=== PATIENT | female | born 1985 | race Caucasian/White ===

== ENCOUNTER 2016-06-20 22:11 | Emergency (ER) | payer OTHER ==
[2016-06-20 22:22] VITALS: BP 144/89; PULSE 90; TEMP 98.7; BMI 47.5
--- NOTE | 2016-06-20 22:25 | PDOC ---
History of Present Illness - General Chief Complaint: Injury Stated Complaint: LACERATION Time Seen by Provider: 06/20/16 22:16 - History of Present Illness Initial Comments: This 30-year-old woman without significant past medical history is brought in by ambulance from [facility] (where patient works) after sustaining a laceration to the right eyebrow. According the patient, she remembers laughing and coughing as she was talking to her friend. She leaned forward and struck the right eyebrow area against the corner of a wall, sustaining a laceration of the right eyebrow. According to the friend, the patient then lost consciousness and fell forward onto the ground. According to the friend, LOC was "less than a minute". No seizure activity/incontinence present. This occurred within a half hour prior to presentation. Patient states that she has pain around the area of the laceration but no generalized headache; she denies lightheadedness/nausea. She has had no visual blurring or double vision; no difficulty speaking/ swallowing. No extremity weakness and no difficulty with balance since the injury No previous history of syncope. No previous history of head injury Patient states that she has had cough productive of green sputum for the last week; she also has minor pain throat pain with coughing but no shortness of breath/wheezing or other symptoms. No previous history of asthma or other chronic respiratory illnesses patient smokes( 1/2 pack per day) 06/21/16 00:58 Past History - Past Medical History Allergies/Adverse Reactions: Allergies Allergy/AdvReac Type Severity Reaction Status Date / Time No Known Allergies Allergy Verified 06/20/16 22:13 Home Medications: Ambulatory Orders Azithromycin 250 mg PO DAILY #4 tablet 06/21/16 Promethazine/Phenyleph/Codeine [Phenergan VC+Codeine Syrup] 5 ml PO QID PRN #60 ml MDD 20 ml 06/21/16 Other medical history: DENIES - Psycho/Social/Smoking Cessation Hx Anxiety: No Suicidal Ideation: No Smoking History: Current every day smoker Have you smoked in the past 12 months: Yes Number of Cigarettes Smoked Daily: 2 Information on smoking cessation initiated: Yes 'Breaking Loose' booklet given: 06/20/16 Hx Alcohol Use: Yes (WEEK ENDS) Drug/Substance Use Hx: No Substance Use Type: None *Physical Exam - Vital Signs Last Vital Signs Temp Pulse Resp BP Pulse Ox 98.7 F 90 18 144/89 100 06/20/16 22:13 06/20/16 22:13 06/20/16 22:13 06/20/16 22:13 06/20/16 22:13 - Physical Exam Comments: Adult female, alert and oriented 3, speaking in full sentences; frequent coughing, no respiratory distress Vital signs as noted HEAD: No contusions, abrasions or lacerations of the scalp; EYES: Pupils equal, round and reactive to light, extraocular movements intact, sclera anicteric, conjunctiva mildly erythematous on right, normal on left One centimeter full-thickness, linear, diagonal laceration right supraorbital region from upper eyelid to mid eyebrow No significant orbital bone tenderness; no step-offs or deformity noted; mild erythema/edema medial portion of the right zygoma, nontender PHARYNX: No erythema, exudate or edema; mucous membranes moist NECK: Supple, nontender, no masses or bruits, no stridor LUNGS: Clear to auscultation bilaterally with good air movement CARDIAC: S1, S2 normal; no extra sounds, rubs or murmurs heard ABDOMEN:Normoactive bowel sounds, nontender, no masses, no organomegaly EXTREMITIES: Normal range of motion, no edema,deformity or tenderness NEUROLOGICAL: Cranial nerves II through XII grossly intact. Normal speech, normal gait.moving all 4 extremities equally, Sensation intact in all extremities. PSYCH: Normal mood, normal affect. SKIN: Warm, Dry, normal turgor, Procedures - Laceration/Wound Repair Right Upper Eye Wound Length: to 2.5 cm Wound Explored: clean Wound's Depth, Shape: linear Irrigated w/ Saline: Yes Betadine Prep: No (Hibiclens/ethanol) Anesthesia: 2% Lidocaine w/ Epi Amount of Anesthetic (ccs): 1 Wound Repaired With: Sutures Suture Size/Type: 5:0 Number of Sutures: 5 Layer Closure: No Sterile Dressing Applied: Yes Progress: Area was cleansed with Hibiclens/ethanol solution. One mL of 2% lidocaine with epinephrine infiltrated locally for anesthetic. Wound irrigated with 20 in the sterile normal saline. Area draped and wound closed with interrupted 5-0 nylon ( 5-0 Surgipro in area of eyebrow), 5 sutures total. Bacitracin ointment applied to the surface of the wound. Band-Aid applied to the wound. Patient tolerated procedure well Progress Note - Progress Note Progress Note: Noncontrast head CT performed because patient had loss of consciousness after she hit her forehead. Medical Decision Making - Medical Decision Making PGU negative Noncontrast head CT performed: No evidence of acute intracranial pathology. No evidence of skull fracture. Supraorbital laceration seen on the right side. Repair of right eyebrow/supraorbital laceration performed as noted above. Because the patient has had several days of greenish sputum and persistent cough , and because she is a smoker, she'll be given prescription for azithromycin ( 250 mg for 4 days with the first dose of 500 mg being given here in the emergency room). She'll also be given 10 mL of guaifenesin/dextromethorphan now. Patient will have sutures removed on June 25. She should follow-up with her doctor sooner if she has worsening cough, shortness of breath or high fever *DC/Admit/Observation/Transfer Diagnosis at time of Disposition: Laceration of eyebrow, right Qualifiers: Encounter type: initial encounter Qualified Code(s): S01.111A - Laceration without foreign body of right eyelid and periocular area, initial encounter Acute bronchitis Qualifiers: Bronchitis organism: unspecified organism Qualified Code(s): J20.9 - Acute bronchitis, unspecified - Discharge Dispostion Disposition: HOME Condition at time of disposition: Stable - Prescriptions Prescriptions: Azithromycin 250 mg PO DAILY #4 tablet Promethazine/Phenyleph/Codeine [Phenergan VC+Codeine Syrup] 5 ml PO QID PRN #60 ml MDD 20 ml PRN Reason: Cough - Patient Instructions Printed Discharge Instructions: How to Care for a Laceration After Repair, DI for Acute Bronchitis Additional Instructions: sleep on back tonight and use extra pillow Keep laceration as dry as possible for the next 2 days Bacitracin ointment to wound daily Azithromycin 250 mg daily for the next 4 days Phenergan/codeine cough syrup 1 teaspoon as needed at night for severe coughing Drink plenty of fluids; avoid smoking Return to ER or see your doctor if you have shortness of breath/wheezing or high fever Have sutures removed on June 25 - Post Discharge Activity Work/School Note: Back to Work
[2016-06-20] MEDS ORDERED: LIDO 2%/EPI 1:200000 PRESRVFRE (20 ML SDVIAL) ONE (23:22)
[2016-06-21] MEDS ORDERED: AZITHROMYCIN 250 MG TABLET (FP) PO ONE (00:05)
[2016-06-21] MEDS ORDERED: guaiFENesin/D-METHORPHAN HB 10 ML UNIT-DOSE CUPS PO ONE (00:06)
[2016-06-21] MEDS ORDERED: guaiFENesin/D-METHORPHAN HB 10 ML UNIT-DOSE CUPS ONE (00:08)
[2016-06-21] MEDS ORDERED: AZITHROMYCIN 250 MG TABLET (FP) ONE (00:08)
== END 2016-06-21 00:23 | disposition home or self-care (01) ==
LOC: FER 22:11
PROC: 0HQ1XZZ Repair Face Skin, External Approach (ICD-10-PCS; principal; 2016-06-20)
DX: S01.111A Laceration without foreign body of right eyelid and periocular area, initial encounter (principal); J20.9 Acute bronchitis, unspecified; F17.210 Nicotine dependence, cigarettes, uncomplicated
CPT/HCPCS: 70450-TC; 84703; 99281-25

== ENCOUNTER 2016-06-29 16:28 | Emergency (ER) | payer OTHER ==
[2016-06-29 16:47] VITALS: BP 135/88; PULSE 83; TEMP 98.4; BMI 47.5
--- NOTE | 2016-06-29 16:55 | PDOC ---
Suture Removal/Wound Check HPI - History of Present Illness History Source: Yes: Patient Exam Limitations: Yes: No Limitations - Onset of Previous Treatment Comment:: 06/29/16 16:58 The patient is a 30 year old female, with no significant past medical history who presents to the emergency department with right eyebrow suture removal. The patient was here on 06/20/16 and 5 sutures into her right eyebrow were placed by the attending ER physician, . The sutures were in good condition and removed upon examination. The patient denies any new injuries. She denies chest pain and shortness of breath. She denies fever, chills, headache and dizziness. She denies nausea, vomit, diarrhea and constipation. She denies dysuria, frequency, urgency and hematuria. Allergies: NKA Past surgical history: denies Social history: denies EtOH use, denies tobacco use, denies drug use <Oziel Koch - Last Filed: 06/29/16 16:58> <David Ruiz - Last Filed: 06/29/16 17:03> - History of Present Illness Chief Complaint: Suture/Staple Removal(Here) Stated Complaint: SUTURE REMOVAL Time Seen by Provider: 06/29/16 16:55 Past History <Oziel Koch - Last Filed: 06/29/16 16:58> - Immunization History Tetanus Status: Unknown - Social History Smoking Status: Current every day smoker Number of Ciarettes Per Day: 2 <David Ruiz - Last Filed: 06/29/16 17:03> - Past Medical History Allergies/Adverse Reactions: Allergies No Known Allergies Allergy (Verified 06/20/16 22:13) Home Medications: Ambulatory Orders Azithromycin 250 mg PO DAILY #4 tablet 06/21/16 Promethazine/Phenyleph/Codeine [Phenergan VC+Codeine Syrup] 5 ml PO QID PRN #60 ml MDD 20 ml 06/21/16 Suture Removal/Wound Check PE - Physical Exam Comments: 06/29/16 16:58 GENERAL: Well-appearing, well-nourished. No apparent distress. Interacting normally with environment. HEENT: Normocephalic, atraumatic. PERRL, EOM intact. Mucous membrane are moist and there is tear production. No congestion. NECK: Supple without nodes. CARDIOVASCULAR: Normal S1, S2. Regular rate and rhythm. PULMONARY: Clear to auscultation bilaterally. ABDOMEN: Soft, non-distended, non-tender. Normal bowel sounds. No organomegaly. EXTREMITIES: Normal ROM in all four extremities. No gross deformities. SKIN: Warm, dry. No rash. 1 cm vertical laceration through the outer right eyebrow. [address] wound is healing well. Edges are well approximated, no tenderness, erythema, swelling or drainage. Sutures were removed atraumatically , bacitracin was applied was instructed to keep wound dry with ointment for another week. Cosmetic result appears to be excellent. NEUROLOGICAL: No focal neurological deficits. <Oziel Koch - Last Filed: 06/29/16 16:58> *Review of Systems - Review of Systems Able to Perform ROS?: Yes Comments:: 06/29/16 16:59 Absent: fever, no chills, no fatigue EYES: Absent: visual changes ENT: Absent: ear pain, no sore throat CARDIOVASCULAR: Absent: chest pain, no palpitations RESPIRATORY: Absent: cough, no SOB GI: Absent: abdominal pain, no nausea, no vomiting, no constipation, no diarrhea GENITOURINARY: Absent: dysuria, no frequency, no hematuria MUSKULOSKELETAL: Absent: back pain, no arthralgia, no myalgia SKIN: Absent: rash NEURO: Absent: headache <Oziel Koch - Last Filed: 06/29/16 16:58> *DC/Admit/Observation/Transfer - Attestations Scribe Attestion: 06/29/16 16:59 Documentation prepared by Oziel Koch, acting as medical orderly for David Crews MD. <Oziel Koch - Last Filed: 06/29/16 16:58> - Discharge Dispostion Admit: No <David Ruiz - Last Filed: 06/29/16 17:03> Diagnosis at time of Disposition: Encounter for removal of sutures - Discharge Dispostion Disposition: HOME Condition at time of disposition: Improved - Patient Instructions Printed Discharge Instructions: DI for Suture Removal Additional Instructions: The wound moist with antibiotic ointment for at least another week. Recheck if sign of infection. Avoid direct pressure, irritation, or disturbance of the healed surface.
== END 2016-06-29 17:03 | disposition home or self-care (01) ==
LOC: FER 16:28
DX: Z48.02 Encounter for removal of sutures (principal)
CPT/HCPCS: 99282-25

== ENCOUNTER 2019-07-06 21:09 | Emergency (ER) | payer OTHER ==
[2019-07-06 21:16] VITALS: TEMP 98.2; BMI 45.7
--- NOTE | 2019-07-06 21:17 | PDOC ---
Rapid Medical Evaluation Time Seen by Provider: 07/06/19 21:12 Medical Evaluation: Allergies Allergy/AdvReac Type Severity Reaction Status Date / Time No Known Allergies Allergy Verified 06/20/16 22:13 07/06/19 21:12 I have performed a brief in-person evaluation of this patient. The patient presents with a chief complaint of:19 weeks w/ "flu like sxs" x 1 day. Also c/o pain in her abd and back. No vag bleed, dysuria, n/v/f/c Pertinent physical exam findings:Stable I have ordered the following:flu, ua The patient will proceed to the ED for further evaluation Discharge Disposition - Diagnosis Viral syndrome, Abdominal pain affecting - Referrals - Patient Instructions - Post Discharge Activity
--- NOTE | 2019-07-06 21:51 | PDOC ---
Attending Attestation - Resident Resident Name: Saul Junior - ED Attending Attestation I have performed the following: I have examined & evaluated the patient, The case was reviewed & discussed with the resident, I agree w/resident's findings & plan - HPI HPI: 07/06/19 23:09 Pt comes with pinkinsh vag discharge; she went to the bathroom to vomit and she feels something coming out of the vagina; she has delivered the feet and legs and baby is stuck at that point. [facility] TE[facility] called. They are sending down pitocin driip - Physicial Exam PE: 07/07/19 19:36 No abd cramping at this time. Pt afebrile. No flank pain. Heart RRR Lungs clear no ext edema Pt has fetus legs/and bottom out of vagina and rest in her vaginal canal. Pt is hemodynamically stable. - Medical Decision Making 07/07/19 00:50 Ptocin started; NSS and morphine given. Baby delivered with TYPING TEACHER present. Awaiting placenta delivery; placenta delivered after pitocin drip given. TYPING TEACHER back at bedside; requesting that we complete the pitocin drip and give pt a dose of methergine 0.2mg IM and then she can follow with her TYPING TEACHER or with our GYNs. Pt may require cerclage with her next .
[2019-07-06] MEDS ORDERED: ACETAMINOPHEN 325 MG TABLET (FP) PO ONE (22:43)
[2019-07-06] MEDS ORDERED: morphine CARPU-JECT 2 MG/1 ML DISP.SYRIN IVPUSH ONE (23:09)
[2019-07-06] MEDS ORDERED: SODIUM CHLORIDE 0.9% 500 ML INFUS.BAG IV ONE (23:09)
[2019-07-06] MEDS ORDERED: morphine SULFATE 4 MG/ML VIAL ONE (23:19)
[2019-07-06] MEDS ORDERED: OXYTOCIN 20 UNITS in 0.9% NS 20 UNIT/1,000 ML INFUS.BAG IV ONE (23:21)
[2019-07-06] MEDS ORDERED: OXYTOCIN 20 UNITS in 0.9% NS 1000 ML INFUS.BAG IV ONE (23:27)
[2019-07-06] MEDS ORDERED: ceFAZolin 2 GRAM PREMIX BAG IVPB ONE (23:27)
--- NOTE | 2019-07-06 23:28 | PDOC ---
History of Present Illness - General Chief Complaint: Vaginal Sxs Stated Complaint: 19WK NM/ABD PAIN Time Seen by Provider: 07/06/19 21:12 History Source: Patient Exam Limitations: No Limitations - History of Present Illness Initial Comments: 07/06/19 23:24 Dali Mcdonough is a 33F at 19 weeks presenting with abdominal and back pain. Patient reports that for the last day, has had suprapubic and lower back pain, described as cramping and is intense, non-positional, not associated with meals. Also having pink fluid discharge vaginally with some mucous discharge, no carlos blood. Sees [facility] for high risk given obesity. No other problems noted with this , no PMH and no meds. 1st time , denies any history STI. Denies chest pain, fever, SOB, urinary sx, diarrhea. Past History - Past Medical History Allergies/Adverse Reactions: Allergies Allergy/AdvReac Type Severity Reaction Status Date / Time No Known Allergies Allergy Verified 07/06/19 21:16 Home Medications: Ambulatory Orders Azithromycin 250 mg PO DAILY #4 tablet 06/21/16 Promethazine/Phenyleph/Codeine [Phenergan VC+Codeine Syrup] 5 ml PO QID PRN #60 ml MDD 20 ml 06/21/16 COPD: No - Psycho Social/Smoking Cessation Hx Smoking History: Never smoked Have you smoked in the past 12 months: Yes Number of Cigarettes Smoked Daily: 2 'Breaking Loose' booklet given: 06/20/16 Hx Alcohol Use: Yes (WEEK ENDS) Drug/Substance Use Hx: No Substance Use Type: None Review of Systems - Review of Systems Able to Perform ROS?: Yes Constitutional: No: Chills, Fever HEENTM: No: Symptoms Reported Respiratory: No: Symptoms reported Cardiac (ROS): No: Symptoms Reported ABD/GI: Yes: Nausea, Abdominal cramping. No: Constipated, Diarrhea, Vomiting : No: Symptoms Reported Musculoskeletal: Yes: Back Pain Integumentary: No: Symptoms Reported Neurological: No: Symptoms reported Endocrine: No: Symptoms Reported Hematologic/Lymphatic: No: Symptoms Reported *Physical Exam - Vital Signs Last Vital Signs Temp Pulse Resp BP Pulse Ox 98.2 F 117 H 18 124/94 98 07/06/19 21:13 07/06/19 21:13 07/06/19 21:13 07/06/19 21:13 07/06/19 21:13 - Physical Exam General Appearance: Yes: Nourished, Appropriately Dressed, Apparent Distress, Obese HEENT: positive: EOMI, MINA, Normal Voice, Pharynx Normal. negative: Scleral Icterus (R), Scleral Icterus (L), Sinus Tenderness Neck: positive: Normal Thyroid, Supple. negative: Tender, Trachea midline, Lymphadenopathy (R), Lymphadenopathy (L) Respiratory/Chest: positive: Lungs Clear, Normal Breath Sounds. negative: Chest Tender, Respiratory Distress, Accessory Muscle Use, Crackles, Rales, Rhonchi, Wheezing Cardiovascular: positive: Regular Rhythm, Regular Rate. negative: Murmur Gastrointestinal/Abdominal: positive: Normal Bowel Sounds, Flat, Soft. negative : Tender (reports suprapubic pain without increased pain to palpation), Organomegaly, Pulsatile Mass, Guarding, Rebound, Tenderness Musculoskeletal: positive: Normal Inspection. negative: CVA Tenderness, Vertebral Tenderness Extremity: positive: Normal Capillary Refill, Normal Inspection, Normal Range of Motion, Pelvis Stable. negative: Tender Integumentary: positive: Normal Color, Dry, Warm Neurologic: positive: Fully Oriented, Alert, Normal Mood/Affect, Normal Response , Motor Strength 5/5, Other (gait normal) ED Treatment Course - LABORATORY CBC & Chemistry Diagram: 07/06/19 23:00 07/06/19 23:00 Medical Decision Making - Medical Decision Making 07/06/19 23:41 Patient is a otherwise healthy at 19 weeks presenting with suprapubic and lower back pain with pink/clear vaginal discharge. Symptoms immediately concerning for miscarriage vs. placental abruption vs. UTI/ pyelo vs. renal stone. Left to place order for Tylenol for pain, patient had left to go to restroom to vomit, found by ED staff to have begun passage of her fetus in the restroom. Brought into room, CBC/CMP/Coags/TS obtained, OBGYN consul from L&D called. OBGYN delivered fetus, weighed 278gm and 9 inches. Ordered 20U pitocin drip to allow for placenta to pass, given 2mg Ancef for infection ppx. 07/06/19 23:49 Ordering RPR and HIV per OBGYN. 07/07/19 00:[address] Hackett. 07/07/19 00:31 Placenta delivered in one piece, OBGYN at bedside. Discharge - Discharge Information Problems reviewed: Yes Clinical Impression/Diagnosis: Abdominal pain affecting , Miscarriage - Follow up/Referral - Patient Discharge Instructions - Post Discharge Activity
[2019-07-06] MEDS ORDERED: CEFAZOLIN 2 GM in DEXTROSE 5%-WATER - 50 ML IVPB ONE (23:30)
[2019-07-06 23:39] LABS: BASO % 0.3 % (0-2.0); EOS % 0.4 % (0-4.5); HEMOGLOBIN 13.5 GM/dL (10.7-15.3); LYMPH % 10.6 % (8-40); MCH 30.4 pg (25.7-33.7); MCHC 33.8 g/dl (32.0-36.0); MEAN CELL VOLUME 89.9 fl (80-96); MEAN PLT VOLUME 9.8 fl (7.5-11.1); MONO % 7.5 % (3.8-10.2); NEUT % 81.2 % (42.8-82.8); PLATELET COUNT 193 K/MM3 (134-434); RBC 4.45 M/mm3 (3.60-5.2); RDW 13.2 % (11.6-15.6); WHITE BLOOD COUNT 12.2 K/mm3 (4.0-10.0)
--- NOTE | 2019-07-06 23:39 | CON.OBG ---
Consult Consult Specialty:: supervisor of guidance and testing Referred by:: Yocasta Ji MD Reason for Consultation:: rickey 19 weeks - History of Present Illness Chief Complaint: 33 yrs , lmp 02/25/2019 , 19 weeks gestation came to ER c/ o leaking fluid. onset since 8.00pM pnc at PMD 's office in [place] . pt c /o cramping, she went to bathroom, she felt something coming out of vagina History of Present Illness: pnc , by PMD in [place] she states she had 2 sonograms done in past no problem with until today. she had excssive discharge in AM today & cramps in AM no c/o bleeding she states she is high risk due to weight ( obesity ) - History Source History Provided By: Patient Limitations to Obtaining History: No Limitations - Past Medical History Cardio/Vascular: No: HTN, Murmur Pulmonary: No: Asthma Gastrointestinal: Yes: Other (none known ) Hepatobiliary: Yes: Other (none known ) Renal/: Yes: Other (declines) ...LMP: 02/25/19 ...: Yes ...: 1 ...Para: 0 Heme/Onc: Yes: Anemia Infectious Disease: Yes: Other (denies) Psych: Yes: Other (denies) Musculoskeletal: Yes: Other (denies) Rheumatology: Yes: Other (denies) Endocrine: Yes: Other (denies) Dermatology: Yes: Other (denies) - Past Surgical History Past Surgical History: Yes: None - Alcohol/Substance Use Hx Alcohol Use: Yes (WEEK ENDS) History of Substance Use: reports: None - Smoking History Have you smoked in the past 12 months: Yes Aproximately how many cigarettes per day: 2 Home Medications - Allergies Allergies/Adverse Reactions: Allergies Allergy/AdvReac Type Severity Reaction Status Date / Time No Known Allergies Allergy Verified 07/06/19 21:16 - Home Medications Home Medications: Ambulatory Orders Azithromycin 250 mg PO DAILY #4 tablet 06/21/16 Promethazine/Phenyleph/Codeine [Phenergan VC+Codeine Syrup] 5 ml PO QID PRN #60 ml MDD 20 ml 06/21/16 Physical Exam-MANAGER LANDSCAPE Vital Signs: Vital Signs Temperature 98.2 F 07/06/19 21:13 Pulse Rate 117 H 07/06/19 21:13 Respiratory Rate 18 07/06/19 21:13 Blood Pressure 124/94 07/06/19 21:13 O2 Sat by Pulse Oximetry (%) 98 07/06/19 21:13 Constitutional: Yes: Well Nourished, Obese, Other (pt is sad) Eyes: Yes: WNL HENT: Yes: WNL Neck: Yes: WNL Cardiovascular: Yes: Other (as per ED physician) Respiratory: Yes: Other (as per ED physician) Gastrointestinal: Yes: Abdomen, Obese Renal/: Yes: WNL, Vaginal Bleeding. No: CVA Tenderness - Left, CVA Tenderness - Right External Genitalia: Yes: Normal Internal Exam Deferred: Yes Vaginal Exam: Yes: Bleeding, Other (fetus hanging out of vagina breech , partally out) Cervix: Yes: Bleeding, Other (os open. fetus hanging from cx) Uterus: Yes: Enlarged (18 weeks size uterus) Adnexa: Not Palpable: Bilateral Breast(s): Yes: Other (pt refused exam . large breast) Musculoskeletal: Yes: WNL Extremities: No: Calf Tenderness Edema: No Integumentary: Yes: WNL Neurological: Yes: WNL, Alert, Oriented ...Motor Strength: WNL Psychiatric: Yes: WNL, Alert, Oriented Labs: Laboratory Tests 07/06/19 07/06/19 07/06/19 23:00 23:00 23:00 WBC 12.2 H Hgb 13.5 Hct 40.0 Plt Count 193 Sodium 138 Potassium 3.6 Chloride 103 Carbon Dioxide 23 BUN 6.2 L Creatinine 0.7 Random Glucose 108 H AST 57 H ALT 90 H Blood Type A POSITIVE Antibody Screen Negative Problem List - Problems (1) 19 weeks gestation of Code(s): Z3A.19 - 19 WEEKS GESTATION OF (2) Spontaneous Code(s): O03.9 - COMPLETE OR UNSP SPONTANEOUS WITHOUT COMPLICATION (3) premature rupture of membranes (PPROM) delivered, current hospitalization Code(s): O42.919 - PRETRM ELIZABETH ROM, UNSP TIME BETW RUPT AND ONST LABR, UNSP TRI (4) Morbid obesity with BMI of 45.0-49.9, adult Code(s): E66.01 - MORBID (SEVERE) OBESITY DUE TO EXCESS CALORIES; Z68.42 - BODY MASS INDEX (BMI) 45.0-49.9, ADULT Assessment/Plan 33 yrs , 19 weeks gestation h/o PPROM, incomplete expulsion of fetus in breech presntation Fetus hangiing out Pt asked to push , after coming head delievered completely at 11.10 PM female fetus, wt 278 GM, wt, 9" in length cord clamped & cut placenta not seprated yet Plan : IV pitocin 20 Iu in 1000 ml of Nsaline at 200ml/hr given watch for 1 hr , if placenta not completely expelled spontaeously, will do MRP under GA prophylactic antibiotics 2 gm IV Ancef stat labs cbc, cmp, coag, T & Screen pending , rpr , hiv also told to resident to be sent 12.30 AM placenta expelled spontaeously. cmpletely placenta inspected pelvic examos close, blood clots removed ebl 300 ml Plan , complete iv pitocin 20 iu in n saline Im Methergine0.2 mg one dose discharge when stable follow up with your PMD
[2019-07-07] MEDS ORDERED: ACETAMINOPHEN 325 MG TABLET (FP) ONE
[2019-07-07] MEDS ORDERED: OXYTOCIN 20 UNITS in 0.9% NS 20 UNIT/1,000 ML INFUS.BAG IV ONE (00:16)
[2019-07-07 00:23] LABS: ALBUMIN 3.4 g/dl (3.4-5.0); BILIRUBIN,TOTAL 0.2 mg/dL (0.2-1); BLOOD UREA NITROGEN 6.2 mg/dL (7-18); CALCIUM 9.3 mg/dL (8.5-10.1); CREATININE 0.7 mg/dL (0.55-1.3); POTASSIUM 3.6 mmol/L (3.5-5.1); TOT PROT 7.3 g/dl (6.4-8.2)
--- NOTE | 2019-07-07 00:34 | PDOC ---
*Physical Exam - Vital Signs Last Vital Signs Temp Pulse Resp BP Pulse Ox 98.2 F 117 H 18 124/94 98 07/06/19 21:13 07/06/19 21:13 07/06/19 21:13 07/06/19 21:13 07/06/19 21:13 <JiYocasta - Last Filed: 07/07/19 01:48> - Vital Signs Last Vital Signs Temp Pulse Resp BP Pulse Ox 98.2 F 117 H 18 124/94 98 07/06/19 21:13 07/06/19 21:13 07/06/19 21:13 07/06/19 21:13 07/06/19 21:13 <Jeremias Hackett - Last Filed: 07/07/19 04:50> ED Treatment Course - LABORATORY CBC & Chemistry Diagram: 07/06/19 23:00 07/06/19 23:00 - ADDITIONAL ORDERS Additional order review: Laboratory Results 07/06/19 07/06/19 23:00 23:00 Sodium 138 Potassium 3.6 Chloride 103 Carbon Dioxide 23 Anion Gap 12 BUN 6.2 L Creatinine 0.7 Est GFR (CKD-EPI)AfAm 133.81 Est GFR (CKD-EPI)NonAf 115.45 Random Glucose 108 H Calcium 9.3 Total Bilirubin 0.2 AST 57 H ALT 90 H Alkaline Phosphatase 51 Total Protein 7.3 Albumin 3.4 Beta HCG, Quant 00594.7 Blood Type A POSITIVE Antibody Screen Negative 07/06/19 23:00 RBC 4.45 MCV 89.9 MCHC 33.8 RDW 13.2 MPV 9.8 Neutrophils % 81.2 Lymphocytes % 10.6 Monocytes % 7.5 Eosinophils % 0.4 Basophils % 0.3 - Medications Given in the ED: ED Medications Discontinued Medications Generic Name Dose Route Start Last Admin Trade Name Freq PRN Reason Stop Dose Admin Acetaminophen 650 mg 07/06/19 22:43 07/07/19 00:17 Tylenol - PO 07/06/19 22:44 650 mg ONCE ONE Administration Oxytocin/Sodium Chloride 20 unit in 1,000 mls @ 125 mls/hr 07/06/19 23:21 23:29 Normal Saline+20 Units Oxytocin - IV 07/07/19 07:20 125 mls/hr ONCE ONE Administration Morphine Sulfate 2 mg 07/06/19 23:09 07/06/19 23:25 Morphine Injection - IVPUSH 07/06/19 23:10 2 mg ONCE ONE Administration Sodium Chloride 1,000 ml 07/06/19 23:09 07/07/19 00:26 Normal Saline - IV 07/06/19 23:10 1,000 ml ONCE ONE Administration <Yocasta Ji - Last Filed: 07/07/19 01:48> - LABORATORY CBC & Chemistry Diagram: 07/06/19 23:00 07/06/19 23:00 - ADDITIONAL ORDERS Additional order review: Laboratory Results 07/06/19 23:00 Sodium 138 Potassium 3.6 Chloride 103 Carbon Dioxide 23 Anion Gap 12 BUN 6.2 L Creatinine 0.7 Est GFR (CKD-EPI)AfAm 133.81 Est GFR (CKD-EPI)NonAf 115.45 Random Glucose 108 H Calcium 9.3 Total Bilirubin 0.2 AST 57 H ALT 90 H Alkaline Phosphatase 51 Total Protein 7.3 Albumin 3.4 07/06/19 23:00 RBC 4.45 MCV 89.9 MCHC 33.8 RDW 13.2 MPV 9.8 Neutrophils % 81.2 Lymphocytes % 10.6 Monocytes % 7.5 Eosinophils % 0.4 Basophils % 0.3 - Medications Given in the ED: ED Medications Discontinued Medications Generic Name Dose Route Start Last Admin Trade Name Lelo PRN Reason Stop Dose Admin Acetaminophen 650 mg 07/06/19 22:43 07/07/19 00:17 Tylenol - PO 07/06/19 22:44 650 mg ONCE ONE Administration Oxytocin/Sodium Chloride 20 unit in 1,000 mls @ 125 mls/hr 07/06/19 23:21 23:29 Normal Saline+20 Units Oxytocin - IV 07/07/19 07:20 125 mls/hr ONCE ONE Administration Morphine Sulfate 2 mg 07/06/19 23:09 07/06/19 23:25 Morphine Injection - IVPUSH 07/06/19 23:10 2 mg ONCE ONE Administration Sodium Chloride 1,000 ml 07/06/19 23:09 07/07/19 00:26 Normal Saline - IV 07/06/19 23:10 1,000 ml ONCE ONE Administration <Jeremias Hackett - Last Filed: 07/07/19 04:50> Medical Decision Making - Medical Decision Making Pt received as sign out Fetus 278g 0 & 0 Pt delivered placenta @ 0030 Will finish pitocin Pt hemostatic Fetus and placenta sent to pathology Pt to f/u w/ OBGYN 07/07/19 00:32 Will give Ibuprofen for cramping Pt A+, no indication for Rhogam Pt to f/u w/ OBGYN/high risk Plan for D/C Discharge instructions and return precautions given Patient in agreement and verbalized understanding Dispo: Home 07/07/19 01:15 <Jeremias Hackett - Last Filed: 07/07/19 04:50> Discharge - Discharge Information Problems reviewed: Yes <Yocasta Ji - Last Filed: 07/07/19 01:48> - Discharge Information Problems reviewed: Yes - Admission No <Jeremias Hackett - Last Filed: 07/07/19 04:50> - Discharge Information Clinical Impression/Diagnosis: Abdominal pain affecting , Miscarriage Condition: Stable Disposition: HOME - Follow up/Referral Referrals: Jillian Valdivia MD [Staff Physician] - - Patient Discharge Instructions Patient Printed Discharge Instructions: Miscarriage, DI for Vaginal Bleeding Additional Instructions: You were seen in the Emergency Department for evaluation of a miscarriage. You will need to follow up with high risk clinic this coming week. There is one at [place]. A referral for OBGYN/their contact information was provided. Review the handout provided at discharge. Return to the Emergency Department if you develop fevers, chest pain, trouble breathing, lightheadedness, persistent vaginal bleeding, worsening symptoms, or any new/concerning symptoms. - Post Discharge Activity Work/Back to School Note: Back to Work
[2019-07-07] MEDS ORDERED: IBUPROFEN 600 MG TABLET (FP) PO ONE ×2 (00:38→00:47)
[2019-07-07] MEDS ORDERED: METHYLERGONOVINE MALEATE 0.2 MG/1 ML AMP IM ONE (00:38)
[2019-07-07 01:52] VITALS: BP 139/94; PULSE 92
--- NOTE | 2019-07-10 15:14 | PATH ---
Surgical Pathology Report Patient Name: ODNTE GUAJARDO [facility]. Rec. #: [id number] /Age/Gender: 1985 (Age: 33) / F Account: [id number] Location: EMERGENCY ROOM Taken: 07/07/2019 Received: 07/09/2019 Reported: 07/10/2019 Physicians: Jillian Valdivia M.D. Specimen(s) Received PRODUCTS OF CONCEPTION Clinical History Patient states her water broke then she felt her fetus coming out. Postoperative diagnosis: Spontaneous Final Diagnosis PRODUCTS OF CONCEPTION, DELIVERY: 242 G, PHENOTYPICALLY MALE FETUS. CROWN TO RUMP LENGTH, 16 CM. CROWN TO HEEL LENGTH, 22.5 CM. FOOT LENGTH, 2.9 CM. SKIN WITH MILD MACERATION. EXTERNAL EXAMINATION SHOWS NO ABNORMALITIES. 116 G SECOND TRIMESTER PLACENTA WITH TRIVASCULAR UMBILICAL CORD AND UNREMARKABLE MEMBRANES. Electronically Signed Mercedes Dudley M.D. Gross Description Received fresh labeled "male fetus," is a 242 g intact fetus. The fetus measures 16 cm from crown to rump, 22.5 cm from crown to heel and has a head circumference of 15.2 cm. Each foot measures 2.9 cm from heel to toe. The skin is mildly macerated. The anus and nares are patent. There is meconium present. The eyelids are fused shut. The upper and lower extremities are well proportioned, without any bony defects. Each hand and foot displays 5 digits. There are no axial defects and the lumbosacral spine is intact. There is a 2 cm in length portion of umbilical cord attached at the umbilicus. The cord displays 3 vessels. The external genitalia are well formed and that of a male. Separately received within the same container is a 116 g, 12.0 x 9.0 x 1.8 cm placenta with attached membranes and umbilical cord. The membranes are shane, translucent with focal opacities and insert marginally. The umbilical cord measures 8.5 cm in length and averages 0.5 cm in diameter. The cord inserts eccentrically, 1.5 cm to the nearest margin. No true knots or strictures are identified. The cut surface of the umbilical cord reveals 3 vessels. The surface is cheek blue with minimal fibrin deposition and appropriate caliber vessels. The maternal surface is red-brown with focal defects. Sectioning reveals red-brown, spongy parenchyma. No definitive lesions are identified. [employer] sections are submitted in 4 cassettes as follows: 1-membrane roll and umbilical cord; 2-4-full thickness sections of placenta. 07/09/2019 [facility]07/09/2019
== END 2019-07-07 02:18 | disposition home or self-care (01) ==
LOC: JER 21:09
PROC: 3E023GC Introduction of Other Therapeutic Substance into Muscle, Percutaneous Approach (ICD-10-PCS; principal; 2019-07-06)
PROC: 3E033GC Introduction of Other Therapeutic Substance into Peripheral Vein, Percutaneous Approach (ICD-10-PCS; 2019-07-06)
PROC: 3E03329 Introduction of Other Anti-infective into Peripheral Vein, Percutaneous Approach (ICD-10-PCS; 2019-07-06)
PROC: 3E033NZ Introduction of Analgesics, Hypnotics, Sedatives into Peripheral Vein, Percutaneous Approach (ICD-10-PCS; 2019-07-06)
DX: O26.892 Other specified pregnancy related conditions, second trimester (principal); O03.9 Complete or unspecified spontaneous abortion without complication; O42.912 Preterm premature rupture of membranes, unspecified as to length of time between rupture and onset of labor, second trimester; E66.01 Morbid (severe) obesity due to excess calories; Z3A.19 19 weeks gestation of pregnancy
CPT/HCPCS: 36415; 80053; 84702; 85025; 86593; 86850; 86900; 86901; 87389; 88305-TC; 99282-25